=== PATIENT | male | born 1950 | race Caucasian/White ===

== ENCOUNTER → 2017-08-29 10:09 | Outpatient (CLI) | payer MEDICARE, SELFPAY ==
--- NOTE | 2017-08-29 10:14 | MR_ITS ---
MR lumbar spine wo con, MR 3-d myelogram/MRCP HISTORY: LBP. Low back pain with sciatica ITS.REASON: LOW BACK PAIN ORDERING PHYSICIAN: Mikie Gonzalez MD PATIENT AGE: 67 years Comparison: MRI 08-07-16 TECHNIQUE: Standard multiplanar multiecho sequences are performed without contrast. 3-D MIP and myelographic images are also rendered and reviewed FINDINGS: There is mild dextroscoliosis of the lumbar spine measuring 16 degrees. This previously measured 12 degrees. Spinal cord ends at T12-L1 level. T12-L1: Unremarkable. L1-L2: Mild degenerative disc disease with decrease in the disc space with type I endplate changes along the inferior endplate of L1. There is mild left lateral translation of L1 by approximately 5 mm. L2-L3: There is degenerative disc disease with bulging disc. There are type I endplate changes. There is prominent spurring along the left aspect of the disc space with asymmetric bulging disc eccentric towards the left along with facet hypertrophic change greater on the left causing moderate left lateral recess narrowing causing mild impingement upon the L3 nerve root with evea-wu-bvfanbic left foraminal narrowing. These findings at L2-L3 have progressed compared to the previous exam. L3-L4: Minimal bulging disc slightly eccentric to the right with mild facet and ligamentum flavum hypertrophy with mild bilateral foraminal narrowing. L4-L5: Minimal bulging disc along with mild facet and ligamentous hypertrophy L5-S1: Degenerative disc disease with bulging disc along facet hypertrophic change with qkpo-rz-lsjzwuhk bilateral foraminal narrowing. No canal stenosis or history herniated disc. IMPRESSION: 1. Multilevel lumbar spondylosis with multilevel degenerative disc disease with bulging discs and facet arthritic changes facet and ligamentum flavum hypertrophy with lateral recess and foraminal narrowing.. Please see above for detailed description at each level 2. There is prominent spurring along the left aspect of L2-L3 at the disc space with asymmetric bulging disc eccentric towards the left along with facet hypertrophic change greater on the left causing moderate left lateral recess narrowing causing mild impingement upon the L3 nerve root with kbsy-lk-sywjmoaq left foraminal narrowing. These findings at L2-L3 have progressed compared to the previous exam. IMPRESSION:
--- NOTE | 2017-08-29 10:14 | MR_ITS ---
MR lumbar spine wo con, MR 3-d myelogram/MRCP HISTORY: LBP. Low back pain with sciatica ITS.REASON: LOW BACK PAIN ORDERING PHYSICIAN: Mikie Gonzalez MD PATIENT AGE: 67 years Comparison: MRI 08-07-16 TECHNIQUE: Standard multiplanar multiecho sequences are performed without contrast. 3-D MIP and myelographic images are also rendered and reviewed FINDINGS: There is mild dextroscoliosis of the lumbar spine measuring 16 degrees. This previously measured 12 degrees. Spinal cord ends at T12-L1 level. T12-L1: Unremarkable. L1-L2: Mild degenerative disc disease with decrease in the disc space with type I endplate changes along the inferior endplate of L1. There is mild left lateral translation of L1 by approximately 5 mm. L2-L3: There is degenerative disc disease with bulging disc. There are type I endplate changes. There is prominent spurring along the left aspect of the disc space with asymmetric bulging disc eccentric towards the left along with facet hypertrophic change greater on the left causing moderate left lateral recess narrowing causing mild impingement upon the L3 nerve root with yosx-jz-llzsytda left foraminal narrowing. These findings at L2-L3 have progressed compared to the previous exam. L3-L4: Minimal bulging disc slightly eccentric to the right with mild facet and ligamentum flavum hypertrophy with mild bilateral foraminal narrowing. L4-L5: Minimal bulging disc along with mild facet and ligamentous hypertrophy L5-S1: Degenerative disc disease with bulging disc along facet hypertrophic change with jgdv-bk-pushgtqi bilateral foraminal narrowing. No canal stenosis or history herniated disc. IMPRESSION: 1. Multilevel lumbar spondylosis with multilevel degenerative disc disease with bulging discs and facet arthritic changes facet and ligamentum flavum hypertrophy with lateral recess and foraminal narrowing.. Please see above for detailed description at each level 2. There is prominent spurring along the left aspect of L2-L3 at the disc space with asymmetric bulging disc eccentric towards the left along with facet hypertrophic change greater on the left causing moderate left lateral recess narrowing causing mild impingement upon the L3 nerve root with mkhs-kl-oxjslghx left foraminal narrowing. These findings at L2-L3 have progressed compared to the previous exam. IMPRESSION:
== END ==
PROVIDERS: Family Provider Family Medicine; PCP Family Medicine; Visit Provider Family Medicine
DX: M54.40 Lumbago with sciatica, unspecified side (principal)
CPT/HCPCS: 72148; 76376

== ENCOUNTER → 2018-04-08 10:10 | Outpatient (POV) | payer MEDICARE, SELFPAY ==
[2018-04-08 10:23] VITALS: BP 131/76; PULSE 67; RESP 18; O2SAT 98
--- NOTE | 2018-04-08 11:37 | HMH.PMCON ---
Assessment and Plan (1) Lumbar spondylosis Current visit: Yes Status: Chronic Category: Medical Code(s): M47.816 - Spondylosis without myelopathy or radiculopathy, lumbar region (2) Facet arthropathy Current visit: Yes Status: Chronic Category: Medical Code(s): M47.819 - Spondylosis without myelopathy or radiculopathy, site unspecified - Assessment and plan all Dx Assessment and Plan for all problems:: We will schedule the patient for an L3-L4 L4-L5 L5-S1 bilateral medial branch block/facet joint injection. I believe it would be beneficial given his symptomology and pathology. I will follow-up with the patient after this. He is continuing on anti-inflammatories and doing a home stretching routine daily. Patient is not on any anti-coagulation therapy. I will follow-up with him after his injection. Dr. Farmer has reviewed this note and agrees with this plan of care. This note was dictated using voice recognition software and may contain errors or omissions HPI - Data of Consult Consult date: 04/08/18 Requesting Physician: Kaitlin Aguilar APRN Primary Care Provider: Mikie Gonzalez MD - Consult Narrative Reason for consult: Back pain History of present illness: Mr. Dawson is a 67 year old male presents today for consultation in regards to his chronic low back pain. Patient states that twisting in length at LAT increases his pain. Patient is taking Aleve and doing stretches to help decrease his pain. He denies numbness or tingling in any extremity or any radicular pain type symptoms. Patient has tried and failed chiropractic therapy. Patient does have moderate relief with Aleve. Patient has done cortisone injections intramuscularly with some good relief. Patient is interested in potential injective therapy. He has an MRI that shows lumbar spondylosis. Patient rates his pain a 2 out of 10 at this time. CC: Kaitlin Aguilar APRN [facility] History I have reviewed the patient's past medical history: Yes Medical History: Reports:: Palpitations Denies:: Diabetes Mellitus Type 1 Other Surgeries: Yes: Appendectomy, Hernia Repair - *Social History Smoking Status: Never smoker Alcohol Intake: never Occupational Status: retired Housing: house Travel in the last 8 weeks: None - Psychiatric History Expresses thoughts of harming self/others: None Suicide Plan Description: No Plan *Family Hx:: Unable to obtain Review of Systems - Review of Systems ROS General: no recent weight change, no fever, no sleep disturbances Respiratory: no cough, no shortness of air, no recurring pulmonary infections Cardiovascular/Peripheral Vascular: No chest pain, No palpitations, no edema, no shortness of breath. Gastrointestinal: no incontinence, normal bowel movements reported Genitourinary: no incontinence Musculoskeletal: [Back pain Psychiatric: normal mood/ affect Neurological: [denies weakness in extremities], [denies balance issues] Meds Allergies Allergy/AdvReac Type Severity Reaction Status Date / Time PCN Allergy Unknown Uncoded 02/19/17 15:37 Objective Vital signs: Pulse Resp BP Pulse Ox 67 18 131/76 98 04/08/18 10:23 04/08/18 10:23 04/08/18 10:23 04/08/18 10:23 Narrative: Physical Exam General: Alert and oriented x3, no acute distress, pleasant and cooperative, [on room air] Lungs: Resps E/U, Symmetrical chest expansion, Eyes: PERRL Musculoskeletal: Flexion and extension of lumbar spine somewhat guarded secondary to pain, deep tendon reflexes normal, strength in upper and lower extremities [5/5], normal gait noted, positive Kemps test bilateral lumbar spine, positive lumbar facet loading bilaterally Neurological: speech clear, caddie equal, no gross sensory deficits Opioid Risk Tool - Opioid Risk Tool-Male Family hx alcohol abuse: N Family hx illegal drugs: N Family hx rx drug abuse: N Personal hx alcohol abuse: N Personal hx illegal drugs: N
--- NOTE | 2018-04-08 11:41 | P.CONS_ITS ---
Assessment and Plan (1) Lumbar spondylosis Current visit: Yes Status: Chronic Category: Medical Code(s): M47.816 - Spondylosis without myelopathy or radiculopathy, lumbar region (2) Facet arthropathy Current visit: Yes Status: Chronic Category: Medical Code(s): M47.819 - Spondylosis without myelopathy or radiculopathy, site unspecified - Assessment and plan all Dx Assessment and Plan for all problems:: We will schedule the patient for an L3-L4 L4-L5 L5-S1 bilateral medial branch bl ock/facet joint injection. I believe it would be beneficial given his symptomology and pathology. I will follow-up with the patient after this. He is continuing on anti-inflammatories and doing a home stretching routine daily. Patient is not on any anti-coagulation therapy. I will follow-up with him after his injection. Dr. Farmer has reviewed this note and agrees with this plan of care. This note was dictated using voice recognition software and may contain errors or omissions HPI - Data of Consult Consult date: 04/08/18 Requesting Physician: Kaitlin Aguilar APRN Primary Care Provider: Mikie Gonzalez MD - Consult Narrative Reason for consult: Back pain History of present illness: Mr. Dawson is a 67 year old male presents today for consultation in regards to his chronic low back pain. Patient states that twisting in length at LAT increases his pain. Patient is taking Aleve and doing stretches to help decrease his pain. He denies numbness or tingling in any extremity or any radicular pain type symptoms. Patient has tried and failed chiropractic therapy. Patient does have moderate relief with Aleve. Patient has done cortisone injections intramuscularly with some good relief. Patient is int erested in potential injective therapy. He has an MRI that shows lumbar spondylosis. Patient rates his pain a 2 out of 10 at this time. CC: Kaitlin Aguilar APRN [facility] History I have reviewed the patient's past medical history: Yes Medical History: Reports:: Palpitations Denies:: Diabetes Mellitus Type 1 Other Surgeries: Yes: Appendectomy, Hernia Repair - *Social History Smoking Status: Never smoker Alcohol Intake: never Occupational Status: retired Housing: house Travel in the last 8 weeks: None - Psychiatric History Expresses thoughts of harming self/others: None Suicide Plan Description: No Plan *Family Hx:: Unable to obtain Review of Systems - Review of Systems ROS General: no recent weight change, no fever, no sleep disturbances Respiratory: no cough, no shortness of air, no recurring pulmonary infections Cardiovascular/Peripheral Vascular: No chest pain, No palpitations, no edema, no shortness of breath. Gastrointestinal: no incontinence, normal bowel movements reported Genitourinary: no incontinence Musculoskeletal: [Back pain Psychiatric: normal mood/ affect Neurological: [denies weakness in extremities], [denies balance issues] Meds Allergies Allergy/AdvReac Type Severity Reaction Status Date / Time PCN Allergy Unknown Uncoded 02/19/17 15:37 Objective Vital signs: Pulse Resp BP Pulse Ox 67 18 131/76 98 04/08/18 10:23 04/08/18 10:23 04/08/18 10:23 04/08/18 10:23 Narrative: Physical Exam General: Alert and oriented x3, no acute distress, pleasant and cooperative, [on room air] Lungs: Resps E/U,
== END ==
PROVIDERS: PCP Family Medicine; Visit Provider Clinical Nurse Specialist Family Health
DX: M47.816 Spondylosis without myelopathy or radiculopathy, lumbar region (principal)
CPT/HCPCS: 99202

== ENCOUNTER → 2018-05-13 11:42 | Outpatient (POV) | payer MEDICARE, SELFPAY ==
[2018-05-13 11:49] VITALS: BP 165/95; PULSE 73; RESP 18; O2SAT 98; BMI 25.0
--- NOTE | 2018-05-13 12:07 | P.CONS_ITS ---
[facility] Pain Management SOAP Note Subjective:: Patient is a very pleasant 67-year-old white male who we are treating for low back pain with lumbar spondylosis and facet arthropathy. Patient is following up after his medial branch block at L3-L4 L4-L5 L5-S1 bilaterally. He states that he is doing much better rating his pain a 2 out of 10 in stating his symptoms have alleviated up to 90%. Patient is interested in repeating this and potentially doing a risotto me. He is continuing a home stretching program and is on anti-inflammatories. ROS General: no recent weight change, no fever, no sleep disturbances Respiratory: no cough, no shortness of air, no recurring pulmonary infections Cardiovascular/Peripheral Vascular: No chest pain, No palpitations, no edema, no shortness of breath. Gastrointestinal: no incontinence, normal bowel movements reported Genitourinary: no incontinence Musculoskeletal: Back pain Psychiatric: normal mood/ affect Neurological: [denies weakness in extremities], [denies balance issues] Objective:: Physical Exam General: Alert and oriented x3, no acute distress, pleasant and cooperative, [on room air] Lungs: Resps E/U, Symmetrical chest expansion, Eyes: PERRL Musculoskeletal: Flexion and extension of lumbar spine somewhat guarded secondary to pain, deep tendon reflexes normal, strength in upper and lower extremities [5/5], slightly antalgic gait noted, positive Kemps test bilateral lumbar spine Neurological: speech clear, 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 Patient is not on any anti-coagulation therapy. I will follow-up with him and reassess his symptoms after his injection. Dr. Farmer has reviewed this note and agrees with this plan of care. This note was dictated using voice recognition software and may contain errors or omissions
== END ==
PROVIDERS: PCP Family Medicine; Visit Provider Clinical Nurse Specialist Family Health
DX: M51.36 Other intervertebral disc degeneration, lumbar region (principal); M47.896 Other spondylosis, lumbar region; M54.06 Panniculitis affecting regions of neck and back, lumbar region
CPT/HCPCS: 99213

== ENCOUNTER → 2018-07-14 08:45 | Outpatient (POV) | payer MEDICARE, SELFPAY ==
[2018-07-14 09:06] VITALS: BP 137/95; PULSE 68; RESP 18; O2SAT 98; BMI 24.4
--- NOTE | 2018-07-14 09:12 | P.CONS_ITS ---
[facility] Pain Management SOAP Note Subjective:: Patient is a pleasant 67-year-old white male who presents today for follow-up after medial branch block at L3-L4 L4-L5 L5-S1. Patient at his last meal branch block at 90% relief for several weeks however this when he did not get relief for his long however he still had up to 80% relief right after the injection. Patient and I discussed an ablation. Patient is interested in pursuing this at this time. He is not on any anticoagulation therapy. He is continuing a home stretching program. He rates his pain today a 4 out of 10. Patient would like to also discuss changing his anti-inflammatories. ROS General: no recent weight change, no fever, no sleep disturbances Respiratory: no cough, no shortness of air, no recurring pulmonary infections Cardiovascular/Peripheral Vascular: No chest pain, No palpitations, no edema, no shortness of breath. Gastrointestinal: no incontinence, normal bowel movements reported Genitourinary: no incontinence Musculoskeletal: Back pain Psychiatric: normal mood/ affect Neurological: [denies weakness in extremities], [denies balance issues] Objective:: Physical Exam General: Alert and oriented x3, no acute distress, pleasant and cooperative, [on room air] Lungs: Resps E/U, Symmetrical chest expansion, Eyes: PERRL Musculoskeletal: Flexion and extension of lumbar spine somewhat guarded secondary to pain, deep tendon reflexes normal, strength in upper and lower extremities [5/5], slightly antalgic gait noted, positive facet loading lumbar spine bilaterally, positive Kemps test Neurological: speech clear, pocket builder equal, no gross sensory deficits Assessment:: Degenerative disc disease lumbar spine with lumbar spondylosis and facet arthropathy Plan:: We will set the patient up for a RFA of the L3-L4 L4-L5 L5-S1 levels. We will start with the right side in 2 weeks later do the left side. Patient has had good relief from his medial branch blocks. We will also start him on Mobic 7.5 mg 1 p.o. daily. Patient's been instructed to call the office if he has any issues prior to his next appointment. Dr. Farmer has reviewed this note and agrees with this plan of care. This note was dictated using voice recognition software and may contain errors or omissions
== END ==
PROVIDERS: PCP Family Medicine; Visit Provider Clinical Nurse Specialist Family Health
DX: M51.36 Other intervertebral disc degeneration, lumbar region (principal); M47.896 Other spondylosis, lumbar region; M54.06 Panniculitis affecting regions of neck and back, lumbar region
CPT/HCPCS: 99212

== ENCOUNTER → 2020-01-14 10:42 | Outpatient (POV) | payer MEDICARE, SELFPAY ==
--- NOTE | 2020-01-14 11:21 | HMH.PAINSOAP ---
[facility] Pain Management SOAP Note Subjective:: Patient is pleasant 67-year-old white male who presents today for medication refills. He is on meloxicam 7.5 mg 1 p.o. daily. He rates his pain a 1 out of 10 overall doing extremely well. He has done well after his medial branch blocks in the past. Patient denies side effects to his meloxicam. We will give him a 3-month supply. He states that it helps up to 80%. ROS General: no recent weight change, no fever, no sleep disturbances Respiratory: no cough, no shortness of air, no recurring pulmonary infections Cardiovascular/Peripheral Vascular: No chest pain, No palpitations, no edema, no shortness of breath. Gastrointestinal: no new onset incontinence, normal bowel movements reported Genitourinary: no new onset incontinence Musculoskeletal: Back pain at times Psychiatric: normal mood/ affect Neurological: [denies new onset weakness in extremities], [denies new onset balance issues] Objective:: Physical Exam General: Alert and oriented x3, no acute distress, pleasant and cooperative, [on room air] Lungs: Resps E/U, Symmetrical chest expansion, Eyes: PERRL Musculoskeletal: Flexion and extension of lumbar spine somewhat guarded secondary to pain, deep tendon reflexes normal, strength in upper and lower extremities [5/5], slightly antalgic gait noted Neurological: speech clear, 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 He has been instructed to call the office if he has any issues prior to his next appointment. We will give him Mobic 7.5 mg 1 p.o. daily we will give him 3-month supply with [address] Farmer has reviewed this note and agrees with this plan of care. This note was dictated using voice recognition software and may contain errors or omissions [facility] History I have reviewed the patient's past medical history: Yes Medical History: Reports:: Palpitations Denies:: Cancer, Diabetes Mellitus Type 1, Diabetes Mellitus Type 2, MRSA, Seizures *Have you ever received a pneumonia vaccine?: No *Have you received a flu vaccine this season?: No Other Medical History: Denies: Blood Transfusion Reaction Other Surgeries: Yes: Appendectomy, Colonoscopy, Hernia Repair Amputation: No Fractures: No - *Social History Smoking Status: Never smoker Alcohol Intake: never *Occupational Status:: retired Housing: house Household Members: spouse *Travel in the last 8 weeks: None Family Hx:: Unable to obtain
[2020-01-14 11:28] VITALS: BP 148/82; PULSE 68; RESP 18; O2SAT 98; BMI 25.1
== END ==
PROVIDERS: PCP Family Medicine; Visit Provider Clinical Nurse Specialist Family Health
DX: M51.36 Other intervertebral disc degeneration, lumbar region (principal); M47.816 Spondylosis without myelopathy or radiculopathy, lumbar region; M12.88 Other specific arthropathies, not elsewhere classified, other specified site
CPT/HCPCS: 99212

== ENCOUNTER 2023-12-23 14:30 | Outpatient (CLI) | payer MEDICARE, SELFPAY ==
--- NOTE | 2023-12-23 | US_ITS ---
FINAL REPORT CLINICAL HISTORY: Bilateral lower extremity pain at rest, former smoker FINDINGS: BILATERAL ANKLE BRACHIAL INDICES Pressure indices are as follows are: RIGHT LOWER EXTREMITY Ankle brachial pressure index: 1.2 Toe brachial pressure index: 0.93 COMMENTS: Normal LEFT LOWER EXTREMITY Ankle brachial pressure index: 1.2 Toe brachial pressure index: 0.88 COMMENTS: Normal IMPRESSION: No evidence of significant obstructive peripheral vascular disease of the lower extremities. Reviewed, Interpreted and Dictated by Jonathan Tracey MD Transcribed by Rosario Arroyo Authenticated and [facility]
--- OUTSIDE RECORDS SUMMARY | 2023-12-23 14:32 | XMS_ITS ---
Author Organization Unknown [facility] No information ASSESSMENT No information CHIEF COMPLAINT No information Vital Signs Bpsitting Date Temperature Heartrate Weight Height Spo2 Bmi Fiel dcount Timerecorded 120/64 2023 00:00: 00 98.7 82 188,0 6,0 99 25.4 9 7 13:45 120/72 2022 00:00: 00 98.3 86 188,0 6,0 98 25.4 9 7 14:30 OBJECTIVE DATA No information PHYSICAL EXAMINATION No information TREATMENT PLAN No information PROBLEMS No information RESULTS No information REVIEW OF SYSTEMS No information SUBJECTIVE DATA No information MEDICATIONS No information
--- OUTSIDE RECORDS SUMMARY | 2023-12-23 14:32 | XMS_ITS ---
Author Organization [facility] No information ASSESSMENT No information CHIEF COMPLAINT No information Medications Date Medication Dosage Dosageunit Startdate Active Dispense Refills Ndccode Isprescription Srcstatus 03/01 00:00 :00 Cefdinir 300 MG Capsule 08/03/2021 00:00:00 0 20 0 [id number] 006 P Discontinu ed 03/05 00:00 :00 dilTIAZem HCl ER Coated Beads 120 MG Capsule Extended Release 24 Hour null 1 30 3 [id number] P Taking 03/01 00:00 :00 dilTIAZem HCl ER Coated Beads 120 MG Capsule Extended Release 24 Hour null 1 30 3 [id number] P Refill 03/01 00:00 :00 dilTIAZem HCl ER Coated Beads 120 MG Capsule Extended Release 24 Hour null 0 60 Capsule 1 [id number] Discontinu ed 03/05 00:00 :00 Famotidine 40 MG Tablet 12/08/2020 00:00:00 1 30 2 [id number] Not Taking 03/01 00:00 :00 Famotidine 40 MG Tablet 12/08/2020 00:00:00 1 30 2 [id number] 960 Not Taking 03/05 00:00 :00 Fexofenadin e HCl 180 MG Tablet 12/08/2020 00:00:00 1 30 2 [id number] 293 P Not Taking 03/01 00:00 :00 Fexofenadin e HCl 180 MG Tablet 12/08/2020 00:00:00 1 30 2 [id number] 293 P Not Taking 03/05 00:00 :00 Meloxicam 15 MG Tablet 03/01/2023 00:00:00 1 30 [id number] 701 P Not Taking 03/01 00:00 :00 Meloxicam 15 MG Tablet 03/01/2023 00:00:00 1 30 [id number] 701 P Start 03/01 00:00 :00 Omeprazole 20 MG Capsule Delayed Release null 0 30 [id number] 830 Discontinu ed OBJECTIVE DATA No information PHYSICAL EXAMINATION No information TREATMENT PLAN No information PROBLEMS No information RESULTS No information REVIEW OF SYSTEMS No information SUBJECTIVE DATA No information VITAL SIGNS No information
== END 2023-12-23 23:59 | disposition home or self-care (01) ==
LOC: RT 14:31
PROVIDERS: PCP Family Medicine; Visit Provider Nurse Practitioner Family
DX: M79.604 Pain in right leg (principal); M79.605 Pain in left leg; G62.9 Polyneuropathy, unspecified; Z87.891 Personal history of nicotine dependence
CPT/HCPCS: 93923

== ENCOUNTER 2024-03-27 13:31 | Outpatient (CLI) | payer MEDICARE, SELFPAY ==
--- NOTE | 2024-03-27 13:38 | XR_ITS ---
FINAL REPORT TECHNIQUE: Bilateral ribs CLINICAL HISTORY: RIB PAIN, PLEURODYNIA COMPARISON: None FINDINGS: BILATERAL RIBS: PA and oblique views of the ribs failed to reveal any evidence of rib fracture. No pneumothorax is identified. There is moderate dextroscoliosis of the lumbar spine noted. IMPRESSION: No acute bony abnormality or pneumothorax identified. Reviewed, Interpreted and Dictated by Jonathan Tracey MD Transcribed by Yoanna Sheppard Authenticated and [facility]
== END 2024-03-27 23:59 | disposition home or self-care (01) ==
LOC: RAD 13:33
PROVIDERS: PCP Family Medicine; Visit Provider Nurse Practitioner Family
DX: R07.81 Pleurodynia (principal)
CPT/HCPCS: 71101